=== PATIENT | male | born 1980 ===

== ENCOUNTER 2020-10-26 09:12 | Emergency (ER) | payer SELFPAY ==
--- NOTE | 2020-10-26 09:28 | PC.NURSE ---
Pt to ED via [facility] from home w/ reports of wellfare check by PD, for eval due to night terrors, tremors, and lack of sleep. After checking in, pt declined to be seen. States I don't want to see a doctor, I just came because I didn't want to argue with the scleroscope tester that was checking on me. Pt called [employer] for a ride, ambulated out of w/r w/ steady gait. A&Ox4.
== END 2020-10-26 09:28 | disposition left against medical advice (07) ==
DX: Z53.21 Procedure and treatment not carried out due to patient leaving prior to being seen by health care provider (principal)
CPT/HCPCS: 99199